=== PATIENT | female | born 1985 | race Caucasian/White ===

== ENCOUNTER → 2023-03-27 | Outpatient (CLI) | payer OTHER | LOC: M PLAIMG 10:33 | PROVIDERS: ATTEND General Practice | DX: J01.30 Acute sphenoidal sinusitis, unspecified (principal) ==

== ENCOUNTER 2023-11-14 01:13 | Emergency (ER) | payer OTHER ==
[~2023-11-14] VITALS: Ht 160 cm; Wt 82.2 kg
[2023-11-14 02:09] LABS: BASO # 0.1 10^3/uL (0.0-0.2); BASO % 0.7 % (0.0-1.0); EOS # 0.1 10^3/uL (0.0-0.5); HEMATOCRIT 37.4 % (36.0-47.0); HEMOGLOBIN 12.9 g/dl (12.0-15.5); LYMPH # 3.3 10^3/uL (1.5-5.0); LYMPH % 29.7 % (24.0-44.0); MEAN CORPUSCULAR HEMOGLOBIN 30.1 pg (27.0-33.0); MEAN CORPUSCULAR HGB CONC 34.5 g/dl (32.0-36.5); MEAN CORPUSCULAR VOLUME 87.4 fl (80.0-96.0); MONO # 0.7 10^3/uL (0.0-0.8); MONO % 6.4 % (2.0-8.0); NEUTROPHILS % 61.9 % (36.0-66.0); PLATELET COUNT, AUTOMATED 360 10^3/uL (150-450); RED BLOOD COUNT 4.28 10^6/uL (4.00-5.40); WHITE BLOOD COUNT 11.2 10^3/uL (4.0-10.0)
[2023-11-14 03:08] LABS: LIPASE 41 U/L (12-53)
[2023-11-14 03:09] LABS: HCG, SERUM QUALITATIVE NEGATIVE (NEGATIVE)
[2023-11-14 03:10] LABS: ALBUMIN 3.7 G/DL (3.2-5.2); ALKALINE PHOSPHATASE 84 U/L (46-116); ALT/SGPT 10 U/L (7.0-40); AST/SGOT < 8 U/L (<34); BILIRUBIN,DIRECT < 0.1 MG/DL (<0.4); BILIRUBIN,TOTAL 0.3 MG/DL (0.3-1.2); BLOOD UREA NITROGEN 19 MG/DL (9-23); CALCIUM LEVEL 9.2 MG/DL (8.5-10.1); CARBON DIOXIDE LEVEL 23 MMOL/L (20-31); CHLORIDE LEVEL 108 MMOL/L (98-107); CREATININE FOR GFR 0.92 MG/DL (0.55-1.30); GLOMERULAR FILTRATION RATE > 60.0 (>60); GLUCOSE, FASTING 155 MG/DL (60-100); POTASSIUM SERUM 3.9 MMOL/L (3.5-5.1); SODIUM LEVEL 140 MMOL/L (136-145); TOTAL PROTEIN 6.5 G/DL (5.7-8.2)
[2023-11-14] MEDS ORDERED: ISOVUE-370 76% 100ML VIAL As Ordered ONE (03:15)
[2023-11-14] MEDS: KETOROLAC 30 MG/ML 1ML VIAL IV ONE (04:19)
[2023-11-14] MEDS: NS 1,000 ML IV ONE (04:19)
[2023-11-14] MEDS: ONDANSETRON 4MG 2ML VIAL IV ONE (04:20)
[2023-11-14] MEDS ORDERED: ONDA-282 PO (06:09)
[2023-11-14 06:31] VITALS: BP 99/61; TEMP 97.9; O2SAT 97
== END 2023-11-14 06:35 | disposition home or self-care (01) ==
LOC: M ED 01:13
DX: A09 Infectious gastroenteritis and colitis, unspecified (principal); F10.10 Alcohol abuse, uncomplicated; Z79.899 Other long term (current) drug therapy
CPT/HCPCS: 74177; 80048; 80076; 83690; 84703; 85025; 96374; 96375; 99284; J1885; J2405; Q9967

== ENCOUNTER 2024-09-15 09:19 | Day surgery (SDC) | payer OTHER ==
[~2024-09-15] VITALS: Ht 160 cm; Wt 83.5 kg
[~2024-09-15 09:19] MED LIST: LORY1TAB2 PO; ONDA-282 PO; RABE1TAB5 PO
[2024-09-15] MEDS ORDERED: fentaNYL 100 MCG/2 ML INJECTION As Ordered ONE (11:20)
[2024-09-15] MEDS ORDERED: propofoL 200 MG/20 ML VIAL As Ordered ONE (11:21)
[2024-09-15 11:53] VITALS: TEMP 96.6
[2024-09-15 12:22] VITALS: BP 112/68; O2SAT 95
== END 2024-09-15 12:23 | disposition home or self-care (01) ==
LOC: M OPP 09:19
PROVIDERS: ATTEND Internal Medicine Gastroenterology
DX: K21.00 Gastro-esophageal reflux disease with esophagitis, without bleeding (principal); D12.0 Benign neoplasm of cecum; D12.2 Benign neoplasm of ascending colon; K58.1 Irritable bowel syndrome with constipation; K64.8 Other hemorrhoids; K22.89 Other specified disease of esophagus; Z79.899 Other long term (current) drug therapy; Z79.3 Long term (current) use of hormonal contraceptives; Z90.89 Acquired absence of other organs
CPT/HCPCS: 43239; 45385; 88305; J3010